=== PATIENT | male | born 1950 | race Caucasian/White ===

== ENCOUNTER 2025-02-27 09:07 | Emergency (ER) | payer MEDICARE ==
[2025-02-27] MEDS ORDERED: Ketorolac Tromethamine 30 MG (1 mL) VIAL ONE (09:54)
== END 2025-02-27 10:43 | disposition home or self-care (01) ==
LOC: CSHERS 09:07
DX: M25.562 Pain in left knee (principal); E11.9 Type 2 diabetes mellitus without complications; I10 Essential (primary) hypertension; Z87.891 Personal history of nicotine dependence; Z55.6 Problems related to health literacy
CPT/HCPCS: 73564; J1885; 96372; 99283